=== PATIENT | female | born 1990 | race African-American/Black ===

== ENCOUNTER 2018-07-09 09:28 | Emergency (ER) | payer OTHER ==
[~2018-07-09] VITALS: Ht 165.1 cm; Wt 68.0 kg
[~2018-07-09 09:28] MED LIST: ALBUTEROL INHAL17 GM IH; DARVOCET-N 1001 EACH PO; DEPAKOTE250 MG PO; K-DUR 20 MEQ T20 MEQ PO; KEFLEX250 MG PO; NAPROSYN500 MG PO; NORCO 5-325 TA1 EACH PO; NORFLEX100 MG PO; RISPERDAL0.5 MG PO; SEROQUEL XR 30300 M1; ULTRAM 50MG TAB50 MG PO; VICODIN 5-5001 EACH PO; ZPAK PO
[2018-07-09] MEDS ORDERED: VENTOLIN HFA 1818 GM INH (09:31)
[2018-07-09 10:13] LABS: URINE BILIRUBIN NEGATIVE (Negative); URINE BLOOD NEGATIVE (Negative); URINE CLARITY CLOUDY; URINE COLOR YELLOW; URINE GLUCOSE-RANDOM* NEGATIVE (Negative); URINE KETONES NEGATIVE (Negative); URINE NITRITE-REFLEX NEGATIVE (Negative); URINE PROTEIN (DIPSTICK) NEGATIVE (Negative); URINE SPECIFIC GRAVITY >= 1.030 (1.005-1.035); URINE UROBILINOGEN 0.2 E.U./dl (0.2-1.0)
[2018-07-09 10:16] LABS: URINE LEUKOCYTES-REFLEX 1+ (Negative)
[2018-07-09 10:20] LABS: SQUAMOUS >10 Many /LPF (0-3); URINE RBC None Seen /HPF (0-2); URINE WBC-REFLEX 0-5 Rare /HPF (0-5)
[2018-07-09 10:21] LABS: AMORPHOUS URATES Few /LPF (None Seen); CASTS None Seen /LPF (None Seen)
[2018-07-09] MEDS ORDERED: KEFLEX500 M1 PO (11:07)
== END 2018-07-09 11:32 | disposition home or self-care (01) ==
LOC: ER 09:28
PROVIDERS: Student in an Organized Health Care Education/Training Program
DX: O23.41 Unspecified infection of urinary tract in pregnancy, first trimester (principal); O00.01 Abdominal pregnancy with intrauterine pregnancy; F17.200 Nicotine dependence, unspecified, uncomplicated; J45.909 Unspecified asthma, uncomplicated; F31.9 Bipolar disorder, unspecified; Z86.2 Personal history of diseases of the blood and blood-forming organs and certain disorders involving the immune mechanism; Z3A.10 10 weeks gestation of pregnancy

== ENCOUNTER 2018-09-08 10:44 | Emergency (ER) | payer OTHER ==
[~2018-09-08] VITALS: Ht 165.1 cm; Wt 68.0 kg
[~2018-09-08 10:44] MED LIST changes: +KEFLEX500 M1 PO; +VENTOLIN HFA 1818 GM INH
[2018-09-08 11:05] LABS: URINE CLARITY CLEAR; URINE COLOR YELLOW; URINE GLUCOSE-RANDOM* NEGATIVE (Negative); URINE PROTEIN (DIPSTICK) NEGATIVE (Negative); URINE SPECIFIC GRAVITY 1.025 (1.005-1.035)
[2018-09-08 11:06] LABS: URINE BILIRUBIN NEGATIVE (Negative); URINE BLOOD NEGATIVE (Negative); URINE KETONES TRACE (Negative); URINE LEUKOCYTES-REFLEX NEGATIVE (Negative); URINE NITRITE-REFLEX NEGATIVE (Negative); URINE UROBILINOGEN 0.2 E.U./dl (0.2-1.0)
[2018-09-08 11:26] LABS: ABSOLUTE NEUTROPHILS 3.2 thou/uL (1.4-8.2); BASOPHILS 0.5 % (0.0-2.0); EOSINOPHILS 5.2 % (0.0-3.0); HEMATOCRIT 33.8 % (37.0-47.0); HEMOGLOBIN 11.4 gm/dL (12.0-15.0); LYMPHOCYTES 30.4 % (24.0-44.0); MCHC 33.7 g/dL (28.0-37.0); PLATELET COUNT 173 thou/uL (150-400); POLYS 55.9 % (36.0-66.0); RBC 4.08 mil/uL (4.20-5.00); WBC 5.7 thou/uL (4.0-11.0)
[2018-09-08 11:33] LABS: CALCIUM 8.4 mg/dL (8.5-10.1); CREATININE 0.5 mg/dL (0.6-1.0); POTASSIUM 3.5 mmol/L (3.5-5.1)
[2018-09-08 11:39] LABS: ALBUMIN 2.7 g/dL (3.4-5.0); TOTAL BILIRUBIN 0.2 mg/dL (<0.1-1.0); TOTAL PROTEIN 6.7 g/dL (6.4-8.2)
[2018-09-08 12:50] VITALS: BP 116/66
== END 2018-09-08 12:52 | disposition home or self-care (01) ==
LOC: ER 10:44
PROVIDERS: Physician Assistant
DX: O26.892 Other specified pregnancy related conditions, second trimester (principal); R10.13 Epigastric pain; J45.909 Unspecified asthma, uncomplicated; F31.9 Bipolar disorder, unspecified; Z86.2 Personal history of diseases of the blood and blood-forming organs and certain disorders involving the immune mechanism; Z3A.19 19 weeks gestation of pregnancy

== ENCOUNTER 2018-10-27 16:41 | Emergency (ER) | payer OTHER ==
[~2018-10-27] VITALS: Ht 162.6 cm; Wt 74.8 kg
[2018-10-27 16:43] VITALS: BP 125/67
== END 2018-10-27 18:45 | disposition left against medical advice (07) ==
LOC: ER 16:41
DX: O9A.212 Injury, poisoning and certain other consequences of external causes complicating pregnancy, second trimester (principal); Z3A.24 24 weeks gestation of pregnancy; R10.9 Unspecified abdominal pain; O99.512 Diseases of the respiratory system complicating pregnancy, second trimester; O99.342 Other mental disorders complicating pregnancy, second trimester; J45.909 Unspecified asthma, uncomplicated; F31.9 Bipolar disorder, unspecified; W10.9XXA Fall (on) (from) unspecified stairs and steps, initial encounter; Y93.89 Activity, other specified; Y92.89 Other specified places as the place of occurrence of the external cause; Y99.8 Other external cause status

== ENCOUNTER 2019-05-10 19:06 | Emergency (ER) | payer OTHER ==
[~2019-05-10] VITALS: Ht 165.1 cm; Wt 77.1 kg
[2019-05-10 19:15] VITALS: BP 143/87
[2019-05-10] MEDS ORDERED: ALBUTEROL2.5 MG/31 (19:19)
== END 2019-05-10 20:37 | disposition home or self-care (01) ==
LOC: ER 19:06
DX: J06.9 Acute upper respiratory infection, unspecified (principal); J45.909 Unspecified asthma, uncomplicated; F31.9 Bipolar disorder, unspecified; Z86.2 Personal history of diseases of the blood and blood-forming organs and certain disorders involving the immune mechanism

== ENCOUNTER 2019-09-09 08:36 | Emergency (ER) | payer OTHER ==
[~2019-09-09] VITALS: Ht 165.1 cm; Wt 77.1 kg
[~2019-09-09 08:36] MED LIST changes: +ALBUTEROL2.5 MG/31
[2019-09-09] MEDS ORDERED: MOBIC15 MG PO (09:06)
[2019-09-09 09:23] VITALS: BP 126/81
== END 2019-09-09 09:30 | disposition home or self-care (01) ==
LOC: ER 08:36
DX: G56.02 Carpal tunnel syndrome, left upper limb (principal)

== ENCOUNTER 2020-02-19 19:09 | Emergency (ER) | payer OTHER ==
[~2020-02-19] VITALS: Ht 165.1 cm; Wt 76.2 kg
[~2020-02-19 19:09] MED LIST changes: +MOBIC15 MG PO
[2020-02-19 19:38] VITALS: BP 149/101
[2020-02-20] MEDS ORDERED: PROAIR HFA8.5 GM INH (15:28)
[2020-02-20] MEDS ORDERED: NORFLEX100 MG PO (16:51)
[2020-02-20] MEDS ORDERED: MOBIC7.5 MG PO (16:51)
== END 2020-02-19 19:40 | disposition home or self-care (01) ==
LOC: ER 19:09
DX: R51 Headache (principal); M54.5 Low back pain; J45.909 Unspecified asthma, uncomplicated; Z88.6 Allergy status to analgesic agent; Z88.0 Allergy status to penicillin; Z79.899 Other long term (current) drug therapy; V49.88XA Car occupant (driver) (passenger) injured in other specified transport accidents, initial encounter; Y93.89 Activity, other specified; Y92.413 State road as the place of occurrence of the external cause; Y99.9 Unspecified external cause status

== ENCOUNTER 2020-02-20 15:18 | Emergency (ER) | payer OTHER ==
[~2020-02-20] VITALS: Ht 165.1 cm; Wt 76.2 kg
[2020-02-20] MEDS ORDERED: PROAIR HFA8.5 GM INH (15:28)
[2020-02-20 16:35] VITALS: BP 132/84
[2020-02-20] MEDS ORDERED: MOBIC7.5 MG PO (16:51)
[2020-02-20] MEDS ORDERED: NORFLEX100 MG PO (16:51)
== END 2020-02-20 16:35 | disposition home or self-care (01) ==
LOC: ER 15:18
DX: S29.012A Strain of muscle and tendon of back wall of thorax, initial encounter (principal); S29.011A Strain of muscle and tendon of front wall of thorax, initial encounter; Z88.6 Allergy status to analgesic agent; Z88.0 Allergy status to penicillin; J45.909 Unspecified asthma, uncomplicated; Z79.899 Other long term (current) drug therapy; V49.88XA Car occupant (driver) (passenger) injured in other specified transport accidents, initial encounter; Y93.89 Activity, other specified; Y92.413 State road as the place of occurrence of the external cause; Y99.9 Unspecified external cause status

== ENCOUNTER 2021-05-12 19:47 | Emergency (ER) | payer OTHER ==
[~2021-05-12 19:47] MED LIST changes: +MOBIC7.5 MG PO; +PROAIR HFA8.5 GM INH
== END 2021-05-12 19:48 ==
LOC: ER 19:47
DX: R10.2 Pelvic and perineal pain (principal); N93.9 Abnormal uterine and vaginal bleeding, unspecified; Z53.21 Procedure and treatment not carried out due to patient leaving prior to being seen by health care provider